=== PATIENT | male | born 1975 | race Caucasian/White ===

== ENCOUNTER 2016-10-20 07:55 | Emergency (ER) | payer BC ==
--- NOTE | 2016-10-24 12:33 | ER ---
ADMIT: 10/20/2016 RM/LOC: ER [facility] MR#: [id number] [facility] [id number] SARAH [place] [address] Emergency Room Report SEX: M AGE: 40 : 1975 DATE: 10/20/2016 ADDENDUM: This is a 40-year-old white male coming in with atypical dyspnea, he is a little short of breath. He had a previous PE some years ago. His risk factors are still low. His D-dimer is negative, so he is low risk by Wells scale and criteria and negative PE. Chest x-ray, EKG, and troponin are all negative as well. We are going to discharge him home, follow up p.r.n. CONDITION ON DISCHARGE: Good. Tanmay Recio MD/ aly JOB #: [id number] CC: Tanmay Recio MD, Attending Physician UNKNOWN, Family Physician
== END 2016-10-20 09:50 | disposition home or self-care (01) ==
LOC: ER 07:55
DX: R07.89 Other chest pain (principal); R06.02 Shortness of breath; Z86.718 Personal history of other venous thrombosis and embolism; Z86.711 Personal history of pulmonary embolism; Z79.01 Long term (current) use of anticoagulants; Z98.890 Other specified postprocedural states